=== PATIENT | female | born 1945 | race Caucasian/White ===

== ENCOUNTER 2023-12-10 13:32 | Outpatient (REF) | payer MEDICARE, MEDICAID, SELFPAY ==
[2023-12-10 17:40] LABS: Anion Gap 14 (12-20); Blood Urea Nitrogen 28 mg/dL (9-16); Calcium 9.5 mg/dL (8.4-10.2); Carbon Dioxide 24 mmol/L (22-29); Chloride 105 mmol/L (96-108); Estimated Average Glucose 143 mg/dL; Estimated Glomerular Filt Rate 36; Hemoglobin A1C 152.1764 umol/L; Hemoglobin A1c % 6.6 % (<6.0); Potassium 5.3 mmol/L (3.3-5.1); Sodium 138 mmol/L (135-145)
== END 2023-12-10 13:33 | disposition home or self-care (01) ==
LOC: HO.HKASLDS 13:32
PROVIDERS: Visit Provider Internal Medicine Nephrology
DX: N18.30 Chronic kidney disease, stage 3 unspecified (principal)
CPT/HCPCS: 36415; 80051; 82310; 82565; 83036; 84520

== ENCOUNTER → 2023-12-15 12:55 | Outpatient (BNVA) | payer MEDICARE, MEDICAID, SELFPAY | PROVIDERS: Visit Provider Internal Medicine Nephrology | DX: I12.9 Hypertensive chronic kidney disease with stage 1 through stage 4 chronic kidney disease, or unspecified chronic kidney disease (principal); N18.31 Chronic kidney disease, stage 3a; R80.9 Proteinuria, unspecified; Z86.73 Personal history of transient ischemic attack (TIA), and cerebral infarction without residual deficits | CPT/HCPCS: 99212 ==

== ENCOUNTER 2023-12-15 13:10 | Outpatient (AMB) | payer MEDICARE, MEDICAID, SELFPAY ==
--- NOTE | 2023-12-15 13:38 | HO.NEPHOV ---
HPI HPI Comments History of Present Illness Details I had the privilege of seeing Ravinder in follow-up of CKD, proteinuria and hypertension. She has history of vascular disease including TIA. Her blood sugars are getting better. Her blood pressure is much better. She is closely followed up by her pari mutuel ticket seller. She denies any chest pain, hypoglycemia, shortness of breath, paroxysmal nocturnal dyspnea, orthopnea, pedal edema or urinary symptoms. She has history of bad yeast infection from SGLT2 inhibitor. There were no new complaints at the time of this office visit. Vital Signs 12/15/23 14:04 Weight 214 lb 6 oz BP 120/70 Blood Pressure Location Lt brachial Physical Exam Vital Signs: Last Vital Signs BP 120/70 12/15/23 14:04 Const General: comfortable and no acute distress Orientation/consciousness: patient oriented x3 HEENT Head: Yes normocephalic Mouth: Normal oral and palatal mucosa present Eyes EOM: EOMs intact bilaterally Neck Neck: Yes supple Resp Auscultation: clear to auscultation bilaterally Cardio Jugular venous distension: no JVD Rate: regular rate GI Palpation (GI): Soft to palpation Auscultation: normal bowel sounds General: Yes no CVA tenderness Back/Spine/Pelvis Back: no CVA tenderness Skin General skin exam: no rashes or lesions noted Neuro General: patient oriented x3 and moves all extremities Extrem General: Yes no pedal edema Assessment & Plan Assessment & Plan (1) CKD (chronic kidney disease) stage 3, GFR 30-59 ml/min: Code(s): N18.30 - Chronic kidney disease, stage 3 unspecified Qualifiers: Chronic kidney disease stage 3 subtype: stage 3a (GFR 45-59) Qualified Code(s): N18.31 - Chronic kidney disease, stage 3a (2) Hypertension: Code(s): I10 - Essential (primary) hypertension Qualifiers: Hypertension type: primary hypertension Qualified Code(s): I10 - Essential (primary) hypertension Plan 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 She has proteinuria. Her renal functions had been stable. Her serum creatinine has gone up marginally along with the serum potassium up to 5.3 after increasing losartan dosage to 100 mg by her pari mutuel ticket seller. She needs to lose some more weight. She tries to maintain a low-sodium diet. Her volume status is optimal. She has not had any renal calculi for some time. She avoids nonsteroidal anti-inflammatories. She keeps up with good hydration. I did not make any medication changes today. She is going to repeat her blood work. If his serum potassium rises or her serum creatinine rises, I plan to back off on her ARB. She would have been a great candidate for SGLT2 inhibitor which we will continue to discuss in the coming office visits. I did not make any medication changes today. All questions answered. Follow-up appointment given. Orders: Orders Blood Urea Nitrogen 12/15/23 I10 - Essential (primary) hypertension, N18.30 - Chronic kidney disease, stage 3 unspecified Electrolytes 12/15/23 I10 - Essential (primary) hypertension, N18.30 - Chronic kidney disease, stage 3 unspecified Creatinine 12/15/23 I10 - Essential (primary) hypertension, N18.30 - Chronic kidney disease, stage 3 unspecified Coding Level of Care Code Est Pt Level 4 (55804) Diagnoses Stage 3a chronic kidney disease N18.31 Chronic kidney disease stage 3 subtype: stage 3a (GFR 45-59) Primary hypertension I10 Hypertension type: primary hypertension Results Reviewed Nephrology Results: Sodium 138 mmol/L (135-145) 12/10/23 Potassium 5.3 mmol/L (3.3-5.1) H 12/10/23 Chloride 105 mmol/L (96-108) 12/10/23 Carbon Dioxide 24 mmol/L (22-29) 12/10/23 BUN 28 mg/dL (9-16) H 12/10/23 Creatinine 1.41 mg/dL (0.5-1.4) H 12/10/23 Calcium 9.5 mg/dL (8.4-10.2) 12/10/23
[2023-12-15 14:04] VITALS: BP 120/70
--- NOTE | 2023-12-15 16:55 | HO.NEPHOV ---
Vital Signs 12/15/23 14:04 Weight 214 lb 6 oz BP 120/70 Blood Pressure Location Lt brachial Physical Exam Vital Signs: Last Vital Signs BP 120/70 12/15/23 14:04 Const General: comfortable and no acute distress Orientation/consciousness: patient oriented x3 HEENT Head: Yes normocephalic Mouth: Normal oral and palatal mucosa present Eyes EOM: EOMs intact bilaterally Neck Neck: Yes supple Resp Auscultation: diminished lung sounds Cardio Jugular venous distension: no JVD Rate: regular rate GI Palpation (GI): Soft to palpation Auscultation: normal bowel sounds General: Yes no CVA tenderness Back/Spine/Pelvis Back: no CVA tenderness Skin General skin exam: no rashes or lesions noted Neuro General: patient oriented x3 and moves all extremities Extrem General: Yes no pedal edema Assessment & Plan Assessment & Plan (1) CKD (chronic kidney disease) stage 3, GFR 30-59 ml/min: Code(s): N18.30 - Chronic kidney disease, stage 3 unspecified Qualifiers: Chronic kidney disease stage 3 subtype: stage 3a (GFR 45-59) Qualified Code(s): N18.31 - Chronic kidney disease, stage 3a (2) Hypertension: Code(s): I10 - Essential (primary) hypertension Qualifiers: Hypertension type: primary hypertension Qualified Code(s): I10 - Essential (primary) hypertension Orders: Orders Blood Urea Nitrogen 12/15/23 I10 - Essential (primary) hypertension, N18.30 - Chronic kidney disease, stage 3 unspecified Electrolytes 12/15/23 I10 - Essential (primary) hypertension, N18.30 - Chronic kidney disease, stage 3 unspecified Creatinine 12/15/23 I10 - Essential (primary) hypertension, N18.30 - Chronic kidney disease, stage 3 unspecified Coding Diagnoses Stage 3a chronic kidney disease N18.31 Chronic kidney disease stage 3 subtype: stage 3a (GFR 45-59) Primary hypertension I10 Hypertension type: primary hypertension Results Reviewed Nephrology Results: Sodium 138 mmol/L (135-145) 12/10/23 Potassium 5.3 mmol/L (3.3-5.1) H 12/10/23 Chloride 105 mmol/L (96-108) 12/10/23 Carbon Dioxide 24 mmol/L (22-29) 12/10/23 BUN 28 mg/dL (9-16) H 12/10/23 Creatinine 1.41 mg/dL (0.5-1.4) H 12/10/23 Calcium 9.5 mg/dL (8.4-10.2) 12/10/23
== END 2023-12-15 14:12 | disposition home or self-care (01) ==
PROVIDERS: Visit Provider Internal Medicine Nephrology
DX: N18.31 Chronic kidney disease, stage 3a (principal); I10 Essential (primary) hypertension
CPT/HCPCS: 99214

== ENCOUNTER 2024-02-11 14:05 | Outpatient (AMB) | payer MEDICARE, MEDICAID, SELFPAY ==
--- NOTE | 2024-02-11 14:15 | HO.NEPHOV ---
Vital Signs 02/11/24 14:19 Height 5 ft 1.5 in Weight 200 lb 4 oz BMI 37.2 BP 132/80 Blood Pressure Location Lt brachial Position Sitting Pulse 67 Pulse Source Pulse Oximeter Pulse Oximetry (%) 97 Oxygen Delivery Method Room Air Intake Visit Reasons: 2 mon follow up/ Confirmed Private Household Worker Required: No Accompanied by: Self / Same As Patient Allergies acetaminophen [From PERCOCET] Allergy (Unknown, Verified 02/11/24 14:22) N/V butorphanol [From STADOL] Allergy (Unknown, Verified 02/11/24 14:22) N/V celecoxib [From CELEBREX] Allergy (Unknown, Verified 02/11/24 14:22) KIDNEY PROBLEMS codeine [CODEINE] Allergy (Unknown, Verified 02/11/24 14:22) N/V latex [LATEX] Allergy (Unknown, Verified 02/11/24 14:22) ITCHING meperidine [From DEMEROL] Allergy (Unknown, Verified 02/11/24 14:22) SEVERE HYPOTENSION oxycodone [From PERCOCET] Allergy (Unknown, Verified 02/11/24 14:22) N/V HPI Comments Details: I had the privilege of seeing Ravinder in follow-up of CKD, proteinuria and hypertension. She recently had encephalopathy with JARAD from urosepsis. Her losartan has been put on hold. She has history of vascular disease including TIA. Her blood sugars are getting better. She is closely followed up by her oxyacetylene burner. She denies any chest pain, hypoglycemia, shortness of breath, paroxysmal nocturnal dyspnea, orthopnea, pedal edema or urinary symptoms. She has history of bad yeast infection from SGLT2 inhibitor. There were no new complaints at the time of this office visit. [facility] Medical History (Updated 02/11/24 @ 14:39 by Cornelius Perkins MD) CKD (chronic kidney disease) stage 3, GFR 30-59 ml/min Hypertension Surgical History (Updated 02/11/24 @ 14:30 by Courtney Ray MA) History of kidney surgery Hx of appendectomy History of cholecystectomy Social History (Updated 02/11/24 @ 14:29 by Courtney Ray MA) Alcohol intake: never Patient Tobacco Use Status: Never used Tobacco Physical Exam Vital Signs: Last Vital Signs Pulse 67 02/11/24 14:19 BP 132/80 02/11/24 14:19 Pulse Ox 97 02/11/24 14:19 Oxygen Delivery Method Room Air 02/11/24 14:19 BMI result Body Mass Index 37.2 Const General: comfortable and no acute distress Orientation/consciousness: patient oriented x3 HEENT Head: Yes normocephalic Mouth: Normal oral and palatal mucosa present Eyes EOM: EOMs intact bilaterally Neck Neck: Yes supple Resp Auscultation: clear to auscultation bilaterally Cardio Jugular venous distension: no JVD Rate: regular rate GI Palpation (GI): Soft to palpation Auscultation: normal bowel sounds General: Yes no CVA tenderness Back/Spine/Pelvis Back: no CVA tenderness Skin General skin exam: no rashes or lesions noted Neuro General: patient oriented x3 and moves all extremities Extrem General: Yes no pedal edema Results Reviewed Nephrology Results: Sodium 140 mmol/L (135-145) 02/11/24 Potassium 4.9 mmol/L (3.3-5.1) 02/11/24 Chloride 102 mmol/L (96-108) 02/11/24 Carbon Dioxide 24 mmol/L (22-29) 02/11/24 BUN 20 mg/dL (9-16) H 02/11/24 Creatinine 1.46 mg/dL (0.5-1.4) H 02/11/24 Calcium 10.0 mg/dL (8.4-10.2) 02/11/24 Assessment & Plan Assessment & Plan (1) CKD (chronic kidney disease) stage 3, GFR 30-59 ml/min: Code(s): N18.30 - Chronic kidney disease, stage 3 unspecified Category: Medical Qualifiers: Chronic kidney disease stage 3 subtype: stage 3a (GFR 45-59) Qualified Code(s): N18.31 - Chronic kidney disease, stage 3a (2) Hypertension: Code(s): I10 - Essential (primary) hypertension Category: Medical Qualifiers: Hypertension type: primary hypertension Qualified Code(s): I10 - Essential (primary) hypertension (3) JARAD (acute kidney injury): Code(s): N17.9 - Acute kidney failure, unspecified Category: Medical Plan 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 She has proteinuria. Her recent JARAD from urosepsis has been resolved. Her losartan has been put on hold which could be restarted once she continues to be stable and well. She needs to lose some more weight. She tries to maintain a low-sodium diet. Her volume status is optimal. She has not had any renal calculi for some time. She avoids nonsteroidal anti-inflammatories. She keeps up with good hydration. She may need follow-up with an urologist to rule out other etiologies for recurrent UTI. She needs to keep her blood sugar at goal. I did not make any medication changes today. She would have been a great candidate for SGLT2 inhibitor which we will continue to discuss in the coming office visits. I did not make any other medication changes today. All questions answered. Follow-up appointment given. Orders: Orders Creatinine Today I10 - Essential (primary) hypertension, N17.9 - Acute kidney failure, unspecified, N18.31 - Chronic kidney disease, stage 3a Electrolytes Today I10 - Essential (primary) hypertension, N17.9 - Acute kidney failure, unspecified, N18.31 - Chronic kidney disease, stage 3a Blood Urea Nitrogen 3 Months I10 - Essential (primary) hypertension, N17.9 - Acute kidney failure, unspecified, N18.31 - Chronic kidney disease, stage 3a Electrolytes 3 Months I10 - Essential (primary) hypertension, N17.9 - Acute kidney failure, unspecified, N18.31 - Chronic kidney disease, stage 3a Blood Urea Nitrogen Today I10 - Essential (primary) hypertension, N17.9 - Acute kidney failure, unspecified, N18.31 - Chronic kidney disease, stage 3a Calcium Today I10 - Essential (primary) hypertension, N17.9 - Acute kidney failure, unspecified, N18.31 - Chronic kidney disease, stage 3a Creatinine 3 Months I10 - Essential (primary) hypertension, N17.9 - Acute kidney failure, unspecified, N18.31 - Chronic kidney disease, stage 3a Coding Level of Care Code Est Pt Level 4 (35812) Diagnoses Stage 3a chronic kidney disease N18.31 Chronic kidney disease stage 3 subtype: stage 3a (GFR 45-59) Primary hypertension I10 Hypertension type: primary hypertension JARAD (acute kidney injury) N17.9
[2024-02-11 14:19] VITALS: BP 132/80; PULSE 67; O2SAT 97; BMI 37.2
== END 2024-02-11 16:32 | disposition home or self-care (01) ==
PROVIDERS: Visit Provider Internal Medicine Nephrology
DX: N18.31 Chronic kidney disease, stage 3a (principal); I10 Essential (primary) hypertension; N17.9 Acute kidney failure, unspecified
CPT/HCPCS: 99214

== ENCOUNTER → 2024-02-11 14:05 | Outpatient (BNVA) | payer MEDICARE, MEDICAID, SELFPAY | PROVIDERS: Visit Provider Internal Medicine Nephrology ==

== ENCOUNTER 2024-02-11 14:55 | Outpatient (REF) | payer MEDICARE, MEDICAID, SELFPAY ==
[2024-02-11 18:05] LABS: Anion Gap 19 (12-20); Blood Urea Nitrogen 20 mg/dL (9-16); Carbon Dioxide 24 mmol/L (22-29); Chloride 102 mmol/L (96-108); Estimated Glomerular Filt Rate 35; Potassium 4.9 mmol/L (3.3-5.1); Sodium 140 mmol/L (135-145)
== END 2024-02-11 14:56 | disposition home or self-care (01) ==
LOC: HO.HKASLDS 14:55
PROVIDERS: Visit Provider Internal Medicine Nephrology
DX: N17.9 Acute kidney failure, unspecified (principal); I12.9 Hypertensive chronic kidney disease with stage 1 through stage 4 chronic kidney disease, or unspecified chronic kidney disease; E11.22 Type 2 diabetes mellitus with diabetic chronic kidney disease; N18.31 Chronic kidney disease, stage 3a
CPT/HCPCS: 36415; 80051; 82310; 82565; 84520; 99212

== ENCOUNTER 2024-05-26 13:38 | Outpatient (AMB) | payer MEDICARE, MEDICAID, SELFPAY ==
--- NOTE | 2024-05-26 14:09 | HO.NEPHOV_ITS ---
Vital Signs 05/26/24 14:10 Height 5 ft 1.5 in Weight 201 lb 8 oz BMI 37.5 BP 132/80 Blood Pressure Location Lt brachial Position Sitting Pulse 71 Pulse Source Pulse Oximeter Pulse Oximetry (%) 96 Oxygen Delivery Method Room Air Intake Visit Reasons: 3 mon follow up/ Unable to LM All Source Collection Manager Required: No Accompanied by: Self / Same As Patient Allergies acetaminophen [From PERCOCET] Allergy (Unknown, Verified 05/26/24 14:12) N/V butorphanol [From STADOL] Allergy (Unknown, Verified 05/26/24 14:12) N/V celecoxib [From CELEBREX] Allergy (Unknown, Verified 05/26/24 14:12) KIDNEY PROBLEMS codeine [CODEINE] Allergy (Unknown, Verified 05/26/24 14:12) N/V latex [LATEX] Allergy (Unknown, Verified 05/26/24 14:12) ITCHING meperidine [From DEMEROL] Allergy (Unknown, Verified 05/26/24 14:12) SEVERE HYPOTENSION oxycodone [From PERCOCET] Allergy (Unknown, Verified 05/26/24 14:12) N/V HPI Comments Details: I had the privilege of seeing Ravinder in follow-up of CKD, proteinuria and hypertension. Her losartan has been put on hold after her recent JARAD. She has history of vascular disease including TIA. Her blood sugars are getting better. She is closely followed up by her laborer operator. She denies any chest pain, hypoglycemia, shortness of breath, paroxysmal nocturnal dyspnea, orthopnea, pedal edema or urinary symptoms. She has history of bad yeast infection from SGLT2 inhibitor. There were no new complaints at the time of this office visit [facility] Medical History (Updated 05/26/24 @ 14:25 by Cornelius Perkins MD) CKD (chronic kidney disease) stage 3, GFR 30-59 ml/min Hypertension Surgical History (Updated 02/11/24 @ 14:30 by Courtney Ray MA) History of kidney surgery Hx of appendectomy History of cholecystectomy Social History (Updated 02/11/24 @ 14:29 by Courtney Ray MA) Alcohol intake: never Patient Tobacco Use Status: Never used Tobacco Review of Systems Const All systems reviewed & are unremarkable except as noted in HPI and below Physical Exam Vital Signs: Last Vital Signs Pulse 71 05/26/24 14:10 BP 132/80 05/26/24 14:10 Pulse Ox 96 05/26/24 14:10 Oxygen Delivery Method Room Air 05/26/24 14:10 BMI result Body Mass Index 37.5 Const General: comfortable and no acute distress Orientation/consciousness: patient oriented x3 HEENT Head: Yes normocephalic Mouth: Normal oral and palatal mucosa present Eyes EOM: EOMs intact bilaterally Neck Neck: Yes supple Resp Auscultation: clear to auscultation bilaterally Cardio Jugular venous distension: no JVD Rate: regular rate GI Palpation (GI): Soft to palpation Auscultation: normal bowel sounds General: Yes no CVA tenderness Back/Spine/Pelvis Back: no CVA tenderness Skin General skin exam: no rashes or lesions noted Neuro General: patient oriented x3 and moves all extremities Extrem General: Yes no pedal edema Assessment & Plan Assessment & Plan (1) CKD (chronic kidney disease) stage 3, GFR 30-59 ml/min: Code(s): N18.30 - Chronic kidney disease, stage 3 unspecified Category: Medical Qualifiers: Chronic kidney disease stage 3 subtype: stage 3a (GFR 45-59) Qualified Code(s): N18.31 - Chronic kidney disease, stage 3a (2) Hypertension: Code(s): I10 - Essential (primary) hypertension Category: Medical Qualifiers: Hypertension type: primary hypertension Qualified Code(s): I10 - Essential (primary) hypertension (3) Diabetic nephropathy: Code(s): E11.21 - Type 2 diabetes mellitus with diabetic nephropathy Category: Medical Qualifiers: Diabetes mellitus type: type 2 Qualified Code(s): E11.21 - Type 2 diabetes mellitus with diabetic nephropathy Plan 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 She has proteinuria. Her losartan has been put on hold since recent JARAD which could be restarted once she continues to be stable and well. She needs to lose some more weight. She tries to maintain a low-sodium diet. Her volume status is optimal. She has not had any renal calculi for some time. She avoids nonsteroidal anti-inflammatories. She keeps up with good hydration. She may need follow-up with an urologist to rule out other etiologies for recurrent UTI. She needs to keep her blood sugar at goal. I did not make any medication changes today. She would have been a great candidate for SGLT2 inhibitor which we will continue to discuss in the coming office visits. I did not make any other medication changes today. All questions answered. Follow-up appointment given Orders: Orders Uric Acid Today E11.21 - Type 2 diabetes mellitus with diabetic nephropathy, I10 - Essential (primary) hypertension, N18.31 - Chronic kidney disease, stage 3a Hemoglobin A1c Today E11.21 - Type 2 diabetes mellitus with diabetic nephropathy, I10 - Essential (primary) hypertension, N18.31 - Chronic kidney disease, stage 3a Blood Urea Nitrogen Today E11.21 - Type 2 diabetes mellitus with diabetic nephropathy, I10 - Essential (primary) hypertension, N18.31 - Chronic kidney disease, stage 3a Creatinine Today E11.21 - Type 2 diabetes mellitus with diabetic nephropathy, I10 - Essential (primary) hypertension, N18.31 - Chronic kidney disease, stage 3a Electrolytes Today E11.21 - Type 2 diabetes mellitus with diabetic nephropathy, I10 - Essential (primary) hypertension, N18.31 - Chronic kidney disease, stage 3a Coding Level of Care Code Est Pt Level 4 (66682) Diagnoses Stage 3a chronic kidney disease N18.31 Chronic kidney disease stage 3 subtype: stage 3a (GFR 45-59) Primary hypertension I10 Hypertension type: primary hypertension Diabetic nephropathy associated with type 2 diabetes mellitus E11.21 Diabetes mellitus type: type 2
[2024-05-26 14:10] VITALS: BP 132/80; PULSE 71; O2SAT 96; BMI 37.5
== END 2024-05-26 14:43 | disposition home or self-care (01) ==
PROVIDERS: Visit Provider Internal Medicine Nephrology
DX: N18.31 Chronic kidney disease, stage 3a (principal); I10 Essential (primary) hypertension; E11.21 Type 2 diabetes mellitus with diabetic nephropathy
CPT/HCPCS: 99214

== ENCOUNTER 2024-05-26 14:44 | Outpatient (REF) | payer MEDICARE, MEDICAID, SELFPAY ==
[2024-05-26 18:25] LABS: Anion Gap 15 (12-20); Blood Urea Nitrogen 27 mg/dL (9-16); Carbon Dioxide 23 mmol/L (22-29); Chloride 105 mmol/L (96-108); Estimated Glomerular Filt Rate 34; Potassium 4.9 mmol/L (3.3-5.1); Sodium 138 mmol/L (135-145); Uric Acid 6.6 mg/dL (2.4-5.7)
[2024-05-26 18:28] LABS: Estimated Average Glucose 128 mg/dL; Hemoglobin A1c % 6.1 % (<6.0)
== END 2024-05-26 14:45 | disposition home or self-care (01) ==
LOC: HO.HKASLDS 14:44
PROVIDERS: Visit Provider Internal Medicine Nephrology
DX: I10 Essential (primary) hypertension (principal); N18.30 Chronic kidney disease, stage 3 unspecified; N17.9 Acute kidney failure, unspecified; N18.31 Chronic kidney disease, stage 3a; E11.21 Type 2 diabetes mellitus with diabetic nephropathy
CPT/HCPCS: 36415; 80051; 82565; 83036; 84520; 84550; 99212

== ENCOUNTER 2024-12-20 13:41 | Outpatient (AMB) | payer MEDICARE, MEDICAID, SELFPAY ==
--- NOTE | 2024-12-20 13:49 | HO.NEPHOV ---
Vital Signs 12/20/24 13:52 Height 5 ft 1.5 in Weight 217 lb 2 oz BMI 40.4 BP 140/84 H Blood Pressure Location Lt brachial Position Sitting Intake Visit Reasons: Pt No Showed to 12/08/24-Conf Surplus Property Disposal Agent Required: No Accompanied by: Self / Same As Patient Allergies acetaminophen [From PERCOCET] Allergy (Unknown, Verified 12/20/24 13:52) N/V butorphanol [From STADOL] Allergy (Unknown, Verified 12/20/24 13:52) N/V celecoxib [From CELEBREX] Allergy (Unknown, Verified 12/20/24 13:52) KIDNEY PROBLEMS codeine [CODEINE] Allergy (Unknown, Verified 12/20/24 13:52) N/V latex [LATEX] Allergy (Unknown, Verified 12/20/24 13:52) ITCHING meperidine [From DEMEROL] Allergy (Unknown, Verified 12/20/24 13:52) SEVERE HYPOTENSION oxycodone [From PERCOCET] Allergy (Unknown, Verified 12/20/24 13:52) N/V HPI Comments Details: Ravinder was seen in follow-up of CKD, proteinuria and hypertension. She recently had UTI. Her losartan has been put on hold after her recent JARAD. She has history of vascular disease including TIA. Her blood sugars are getting better. She is closely followed up by her cardio clinician. She denies any chest pain, hypoglycemia, shortness of breath, paroxysmal nocturnal dyspnea, orthopnea, pedal edema or urinary symptoms. She has history of bad yeast infection from SGLT2 inhibitor. There were no new complaints at the time of this office visit [facility] Medical History (Updated 05/26/24 @ 14:25 by Cornelius Perkins MD) CKD (chronic kidney disease) stage 3, GFR 30-59 ml/min Hypertension Surgical History History of kidney surgery Hx of appendectomy History of cholecystectomy Social History Alcohol intake: never Patient Tobacco Use Status: Never used Tobacco Review of Systems Const All systems reviewed & are unremarkable except as noted in HPI and below Physical Exam Vital Signs: Last Vital Signs BP 140/84 H 12/20/24 13:52 BMI result Body Mass Index 40.4 Const General: comfortable and no acute distress Orientation/consciousness: patient oriented x3 HEENT Head: Yes normocephalic Mouth: Normal oral and palatal mucosa present Eyes EOM: EOMs intact bilaterally Neck Neck: Yes supple Resp Auscultation: clear to auscultation bilaterally Cardio Jugular venous distension: no JVD Rate: regular rate GI Palpation (GI): Soft to palpation Auscultation: normal bowel sounds Skin General skin exam: no rashes or lesions noted Neuro General: patient oriented x3 and moves all extremities Extrem General: Yes no pedal edema Results Reviewed Nephrology Results: Sodium 138 mmol/L (135-145) 05/26/24 Potassium 4.9 mmol/L (3.3-5.1) 05/26/24 Chloride 105 mmol/L (96-108) 05/26/24 Carbon Dioxide 23 mmol/L (22-29) 05/26/24 BUN 27 mg/dL (9-16) H 05/26/24 Creatinine 1.48 mg/dL (0.5-1.4) H 05/26/24 Calcium 10.0 mg/dL (8.4-10.2) 02/11/24 Assessment & Plan Assessment & Plan (1) Diabetic nephropathy: Code(s): E11.21 - Type 2 diabetes mellitus with diabetic nephropathy Category: Medical Qualifiers: Diabetes mellitus type: type 2 Qualified Code(s): E11.21 - Type 2 diabetes mellitus with diabetic nephropathy (2) CKD (chronic kidney disease) stage 3, GFR 30-59 ml/min: Code(s): N18.30 - Chronic kidney disease, stage 3 unspecified Category: Medical Qualifiers: Chronic kidney disease stage 3 subtype: stage 3a (GFR 45-59) Qualified Code(s): N18.31 - Chronic kidney disease, stage 3a (3) Hypertension: Code(s): I10 - Essential (primary) hypertension Category: Medical Qualifiers: Hypertension type: primary hypertension Qualified Code(s): I10 - Essential (primary) hypertension Plan 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 She has H/O proteinuria. Her losartan has been put on hold since recent JARAD which could be restarted once she continues to be stable and well. She needs to lose some more weight. She tries to maintain a low-sodium diet. Her volume status is optimal. She has not had any renal calculi for some time. She avoids nonsteroidal anti-inflammatories. She keeps up with good hydration. She may need follow-up with an urologist to rule out other etiologies for recurrent UTI. She needs to keep her blood sugar at goal. I did not make any medication changes today. She would have been a great candidate for SGLT2 inhibitor which we will continue to discuss in the coming office visits. I did not make any other medication changes today. All questions answered. Follow-up appointment given Orders: Orders Creatinine Today E11.21 - Type 2 diabetes mellitus with diabetic nephropathy, I10 - Essential (primary) hypertension, N18.31 - Chronic kidney disease, stage 3a Blood Urea Nitrogen Today E11.21 - Type 2 diabetes mellitus with diabetic nephropathy, I10 - Essential (primary) hypertension, N18.31 - Chronic kidney disease, stage 3a Electrolytes Today E11.21 - Type 2 diabetes mellitus with diabetic nephropathy, I10 - Essential (primary) hypertension, N18.31 - Chronic kidney disease, stage 3a Coding Level of Care Code Est Pt Level 4 (00737) Diagnoses Diabetic nephropathy associated with type 2 diabetes mellitus E11.21 Diabetes mellitus type: type 2 Stage 3a chronic kidney disease N18.31 Chronic kidney disease stage 3 subtype: stage 3a (GFR 45-59) Primary hypertension I10 Hypertension type: primary hypertension
[2024-12-20 13:52] VITALS: BP 140/84; BMI 40.4
--- OUTSIDE RECORDS SUMMARY | 2024-12-20 16:18 | XMS_ITS | Encounter Summary ---
Author Organization [facility] Address [address] [place] [address] Phone Care Team Providers Care Maintenance Service Supervisor Name Role Phone Christopher Anne MD Primary Care Provider [phone] Encounter Details Date Type Department Care Team (Late st Contact Info) Description 05/14/2022 Telephone [facility] [address] [place] [address] Cornelius Perkins MD Social History Tobacco Use Types Packs/Day Years Used Date Smoking Tobacco: Former Cigarettes Q uit: 09/21/1981 Smokeless Tobacco: Never Comments:Smoking History Inf o:Every day Alcohol Use Standard Drinks/Week Comments No 0 (1 standard drink = 0.6 oz pur e alcohol) Comments Unknown Sex and Gender Information Value Date Recorded Sex Assigned at Not on file Legal Sex Female 4:56 PM EST Gender Identity Not on file Sexual Orientation Not on file documented as of this encounter Miscellaneous Notes * Telephone Encounter - Dilcia Luna - 05/14/2022 1:05 PM EDT Pt called, she needs a refill for losartan, Pharmacy has not received it and she will be out today.Please advise Thank you documented in this encounter Plan of Treatment Not on file documented as of this encounter Visit Diagnoses Not on filedocumented in this encounter Care Teams Maintenance Service Supervisor Relationship Specialty Start Date End Date Christopher Anne MD [address] [place], [place] [address] [place] [address] PCP - General 10/01/20 documented as of this encounter
--- OUTSIDE RECORDS SUMMARY | 2024-12-20 16:18 | XMS_ITS | Encounter Summary ---
Author Organization [facility] Address [address] [facility] [address] [place] [address] Phone Care Team Providers Care Cad Specialist Name Role Phone Christopher Anne MD Primary Care Provider [phone] Reason for Visit * Reason Comments Med Refill Encounter Details Date Type Department Care Team (Late st Contact Info) Description 01/16/2022 Refill [facility] [address] [place] [id number] Cornelius Perkins MD Social History Tobacco Use Types Packs/Day Years Used Date Smoking Tobacco: Former Cigarettes Q uit: 09/21/1981 Smokeless Tobacco: Former Comments:Smoking History Inf o:Every day Alcohol Use Standard Drinks/Week Comments No 0 (1 standard drink = 0.6 oz pur e alcohol) Comments Unknown Sex and Gender Information Value Date Recorded Sex Assigned at Not on file Legal Sex Female 4:56 PM EST Gender Identity Not on file Sexual Orientation Not on file documented as of this encounter Plan of Treatment Not on file documented as of this encounter Visit Diagnoses Not on filedocumented in this encounter Care Teams Cad Specialist Relationship Specialty Start Date End Date Christopher Anne MD [address] [place] [address] [address] [place] [address] PCP - General 10/01/20 documented as of this encounter
--- OUTSIDE RECORDS SUMMARY | 2024-12-20 16:19 | XMS_ITS | Clinical Summary ---
Author Organization [facility] Address 100 [facility] [address] [place] [address] Phone Care Team Providers Care Faro Dealer Name Role Phone Christopher Anne MD Primary Care Provider [phone] Allergies Active Allergy Reactions Criticality Noted Date Comments Celecoxib Other (see comments) 04/29/2021 Cephalexin Other (see comments) 04/29/2021 Ciprofloxacin Other (see comments) 04/29/2021 Codeine Other (see comments) 04/29/2021 Levofloxacin Other (see comments) 02/12/2021 Meperidine Other (see comments) 02/12/2021 Oxycodone-Acetaminophen Other (see comments) Prochlorperazine Other (see comments) Montelukast Other (see comments) 04/29/2021 Butorphanol Other (see comments) 04/29/2021 Medications albuterol HFA (PROVENTIL HFA;VENTOLIN HFA) 108 (90 Base) MCG/ACT inhaler Active clonazePAM (KlonoPIN) 0.5 MG tablet Take 3 tablets by mouth 1 (one) time each day Active fluvastatin XL (LESCOL XL) 80 MG 24 hr tablet Take 1 tablet by mouth 1 (one) time each day Active levothyroxine (SYNTHROID, LEVOTHROID) 100 MCG tablet Take 1 tablet by mouth 1 (one) time each day Active metFORMIN (GLUCOPHAGE) 1000 MG tablet Take 1 tablet by mouth 2 (two) times a day Active montelukast (SINGULAIR) 10 MG tablet Take 1 tablet by mouth 1 (one) time each day Active omeprazole (PriLOSEC) [address] capsule Take 1 capsule by mouth 1 (one) time each day Active Cholecalciferol (Vitamin D3) 125 MCG (5000 UT) capsule Take 1 tablet by mouth 1 (one) time each day 04/15/2021 Active metoprolol succinate XL (TOPROL XL) 50 MG 24 hr tablet Take 1.5 tablets (75 mg total) by mouth 1 (one) time each day Do not crush or chew. 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 10/20/2022 Encounter for general adult medical examination without abnormal finding 10/20/2022 Personal history of other medical treatment 09/23 Post-discharge follow-up 10/20/2022 Vertebral artery stenosis 10/20/2022 Vitamin D deficiency 10/20/2022 Weight loss 10/20/2022 Hyperlipidemia 01/16/2022 Type 2 diabetes mellitus 01/16/2022 Essential hypertension 04/30/2021 Urinary tract infection 04/30/2021 Hypertension 04/30/2021 Stage 3a chronic kidney disease 04/30/2021 Chronic kidney disease stage 2 02/12/2021 Hypertensive chronic kidney disease, unspecified, with chronic kidney disease stage I through stage IV, or unspecified 02/12/2021 Proteinuria 02/12/2021 Resolved Problems Problem Noted Date Diagnosed Date Resolved Date Asthma 04/30/2021 04/30/2021 Asymptomatic hyperuricemia 04/30/2021 0 04/30/2021 Atherosclerosis of [place] of the extremities 04/30/2021 04/30/2021 Lumbago 04/30/2021 04/30/2021 Carpal tunnel syndrome 04/30/202104/30 Chronic obstructive pulmonary disease 04/30/2021 04/30/2021 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 04/30/2021 04/30/2021 Disturbance of consciousness 04/30/2021 04/30/2021 Diverticulitis of colon 04/30/202104/21 Dyspnea 04/30/2021 04/30/2021 Esophageal reflux 04/30/2021 04/30/2021 First degree atrioventricular block 04/30/2021 04/30/2021 Gout 04/30/2021 04/30/2021 Hypothyroidism 04/30/2021 04/30/2021 Impingement syndrome of shoulder region 04/30/2021 04/30/2021 Knee joint effusion 04/30/2021 04/30/20 21 Clavicle pain 04/30/2021 04/30/2021 Multiple joint pain 04/30/2021 04/30/20 21 Shoulder joint pain 04/30/2021 04/30/20 21 Obstructive sleep apnea 04/30/202104/21 Osteoarthritis of left knee joint 04/30/2021 04/30/2021 Pain in left leg 04/30/2021 04/30/2021 Pain in limb 04/30/2021 04/30/2021 Type 2 diabetes mellitus wit h other circulatory complication 04/30/2021 04/30/2021 Pure hypercholesterolemia 04/30/2021 Screening for malignant neoplasm of colon 04/30/2021 04/30/2021 Sleep disorder 04/30/2021 04/30/2021 Transient cerebral ischemia 04/30/2021 04/30/2021 Immunizations Name Administration Dates Next Due Pneumococcal Polysaccharide 06/06/2010 TD Preservative Free 07/22/2010 Zoster 04/16/2013 Family History Medical History Relation Comments Cancer Mother Hypertension Sibling 1 Diabetes Sibling 2 Heart disease Sibling 3 Dementia Sibling 4 Stroke Sibling 5 Cancer Sibling 6 Relation Status Comments Father Mother Sibling 1 Sibling 2 Sibling 3 Sibling 4 Sibling 5 Sibling 6 Social History Tobacco Use Types Packs/Day Years Used Date Smoking Tobacco: Former Cigarettes Q uit: 09/21/1981 Smokeless Tobacco: Never Tobacco Cessation:Counseling Given: Not Answered Comments:Smoking History Info:Every day Alcohol Use Standard Drinks/Week Comments No 0 (1 standard drink = 0.6 oz pur e alcohol) Comments Unknown Sex and Gender Information Value Date Recorded Sex Assigned at Not on file Legal Sex Female 4:56 PM EST Gender Identity Not on file Sexual Orientation Not on file Last Filed Vital Signs Vital Sign Reading Time Taken Comments Blood Pressure 124/82 10/20/2022 3:22 PM EST Pulse 72 10/20/2022 3:22 PM EST Temperature - - Respiratory Rate - - Oxygen Saturation 96% 04/30/2021 3:06 PM EDT Inhaled Oxygen Concentration - - Weight 99 kg (218 lb 3.2 oz) 10/20/2022 3:22 PM EST Height 157.5 cm (5' 2 ) 04/02/2020 12:00 PM EDT Body Mass Index 39.91 04/02/2020 12:00 PM EDT Plan of Treatment Health Maintenance Due Date Last Done Comments Diabetes: Hemoglobin A1C 04/30/2021 01/24/2020 Diabetes: Ophthalmology Exam 04/30/2021 Diabetes: Pedal Pulse Checked 04/30/2021 Diabetes: Sensory Foot Exam 04/30/2021 Diabetes: Visual Foot Exam 04/30/2021 Influenza Vaccine (#1) 2024 Pneumococcal Vaccine: 65+ Years Completed 07/08/2017, 05/25/2016, 06/06/2010 Hepatitis B Vaccine Aged Out No longe r eligible based on patient's age to complete this topic Procedures Procedure Name Priority Date/Time Associated Diagnosis Comments BLOOD PANEL (HC) Routine 01/24/2020 12:0 0 AM EDT from Last 3 Months or Most Recently Relevant to Health Maintenance Results * (ABNORMAL) Blood Panel (01/24/2020 12:00 AM EDT) Platelets 302 140 - 440 k/uL [facility] Sodium 135(L) 137 - 145 mmol/L [facility] Potassium 4.8 3.5 - 5.1 mmol/L [facility] Vitamin D, 25-OH, Total 40 20 - 100 ng/ml [facility] Creatinine 1.64(H) 0.70 - 1.30 mg/dl [facility] Calcium 9.0 8.4 - 10.2 mg/dl [facility] eGFR Non- 31(L) >60 ml/min [facility] Hgb 11.7(L) 13.0 - 16.5 g/dl [facility] Hematocrit 38.0 38 - 50 % [facility] Carbon Dioxide (CO2) 25 22 - 30 mmol/L [facility] BUN 30(H) 9 - 20 mg/dl [facility] Hemoglobin A1C 6.5(H) <5 % [facility] 01/24/2020 [facility] [id number] LICITED RESULTS Final Result [facility] from Last 3 Months or Most Recently Relevant to Health Maintenance Insurance MEDICARE [place]ID [place] Care Teams Faro Dealer Relationship Specialty Start Date End Date Christopher Anne MD [address] [place] [address] [place] [address] PCP - General 10/01/20
== END 2024-12-20 14:11 | disposition home or self-care (01) ==
LOC: HO.HKAS 13:42
PROVIDERS: Visit Provider Internal Medicine Nephrology
DX: E11.21 Type 2 diabetes mellitus with diabetic nephropathy (principal); N18.31 Chronic kidney disease, stage 3a; I10 Essential (primary) hypertension
CPT/HCPCS: 99214

== ENCOUNTER 2024-12-20 13:41 | Outpatient (REF) | payer MEDICARE, MEDICAID, SELFPAY ==
--- OUTSIDE RECORDS SUMMARY | 2024-12-20 17:14 | XMS_ITS | Encounter Summary ---
Author Organization [facility] Address [address] [facility] [address] [place] [address] Phone Care Team Providers Care Stamp Presser Name Role Phone Christopher Anne MD Primary Care Provider [phone] Reason for Visit * Reason Comments Med Refill Encounter Details Date Type Department Care Team (Late st Contact Info) Description 01/16/2022 Refill [facility] [address] [place] [phone] Cornelius Perkins MD Social History Tobacco Use [...] on filedocumented in this encounter Care Teams Stamp Presser Relationship Specialty Start Date End Date Christopher Anne MD [address] [place] [address] [address] [place] [address] PCP - General 10/01/20 documented as of this encounter
--- OUTSIDE RECORDS SUMMARY | 2024-12-20 17:15 | XMS_ITS | Clinical Summary ---
Author Organization [facility] Address 100 [facility] [address] [place] [address] Phone Care Team Providers Care Cutter Inspector Name Role Phone Christopher Anne MD Primary Care Provider [phone] Allergies Active Allergy Reactions Criticality Noted Date [...] Asymptomatic hyperuricemia 04/30/2021 0 04/30/2021 Atherosclerosis of [place] ar teries of the extremities 04/30/2021 04/30/2021 [...] % [facility] 01/24/2020 [facility] [id number] LICITED RESULTS Final Result [facility] from Last 3 Months or Most Recently Relevant to Health Maintenance Insurance MEDICARE [place]ID [place] Care Teams Cutter Inspector Relationship Specialty Start Date End Date Christopher Anne MD [address] [place] [address] [place] [address] PCP - General 10/01/20
--- OUTSIDE RECORDS SUMMARY | 2024-12-20 17:15 | XMS_ITS | Encounter Summary ---
Author Organization [facility] Address [address] [place] [address] Phone Care Team Providers Care Video System Repairer Name Role Phone Christopher Anne MD Primary Care Provider [phone] Encounter Details Date Type Department Care Team (Late st Contact Info) Description 05/14/2022 Telephone [facility] [address] [place] [address] Cornelius Perkins MD Social History [...] on filedocumented in this encounter Care Teams Video System Repairer Relationship Specialty Start Date End Date Christopher Anne MD [address] [place], [place] [address]. [address] [place] [address] PCP - General 10/01/20 documented as of this encounter
[2024-12-20 19:55] LABS: Anion Gap 11 (12-20); Blood Urea Nitrogen 22 mg/dL (9-16); Carbon Dioxide 22 mmol/L (22-29); Chloride 110 mmol/L (96-108); Estimated Glomerular Filt Rate 33; Potassium 5.1 mmol/L (3.3-5.1); Sodium 138 mmol/L (135-145)
== END 2024-12-20 13:42 | disposition home or self-care (01) ==
LOC: HO.HKASLDS 13:41
PROVIDERS: Visit Provider Internal Medicine Nephrology
DX: E11.21 Type 2 diabetes mellitus with diabetic nephropathy (principal); I12.9 Hypertensive chronic kidney disease with stage 1 through stage 4 chronic kidney disease, or unspecified chronic kidney disease; N18.31 Chronic kidney disease, stage 3a
CPT/HCPCS: 36415; 80051; 82565; 84520; 99212